=== PATIENT | female | born 1960 | race Caucasian/White ===

== ENCOUNTER 2017-01-29 17:20 | Emergency (ER) | payer OTHER ==
--- NOTE | 2017-02-05 14:37 | ER ---
ADMIT: 01/29/2017 RM/LOC: [facility] MR#: [id number] [facility] [address] [place], [place] [id number] KURTIS ROWAN [address] [place] [address] Emergency Room Report SEX: F AGE: 57 : 1960 DATE: 01/29/2017 ADDENDUM: CHIEF COMPLAINT: Anxiety. HISTORY OF PRESENT ILLNESS: This is a 57-year-old who has a history of anxiety and depression. She said there has just been a lot of things going on in her life, and she just feels like she cannot take it. She did try to go to [facility] today. She was waiting all day for them to call back. They did not, so she comes here just for some relief of her anxiety and plans on following up with [facility] afterwards. CLINICAL IMPRESSION: Anxiety. I am sending her home with Dorian. Told her to follow up there again [facility] for further anxiety control. YU Magdaleno / Brett Colon MD / samm JOB #: [id number] CC: Brett Colon MD, Attending Physician Lawanda Terry, Family Physician
== END 2017-01-29 18:25 | disposition home or self-care (01) ==
LOC: ER 17:20
DX: F41.9 Anxiety disorder, unspecified (principal); F32.9 Major depressive disorder, single episode, unspecified; F17.210 Nicotine dependence, cigarettes, uncomplicated; Z90.710 Acquired absence of both cervix and uterus; Z79.899 Other long term (current) drug therapy; Z88.8 Allergy status to other drugs, medicaments and biological substances